=== PATIENT | female | born 1945 | race Caucasian/White ===

== ENCOUNTER 2018-12-27 19:08 | Emergency (ER) | payer SELFPAY ==
[~2018-12-27] VITALS: Ht 152.4 cm; Wt 54.3 kg
[2018-12-27 19:55] VITALS: Ht 152.4 cm; Wt 54.3 kg
[2018-12-28] MEDS ORDERED: ENAL20TA PO (01:19)
[2018-12-28] MEDS ORDERED: ASPI-535 PO (01:19)
[2018-12-28] MEDS ORDERED: IBUPROFEN 600 MG TAB PO ONE (01:30)
--- NOTE | 2018-12-28 01:50 | ERD ---
ER Documentation Chief Complaint Chief Complaint PALPITATIONS X 10 DAYS AND r ARM PAIN HPI Is a 69-year-old female palpitations 10 days. She also complains of right arm pain for the past 6 months. Denies any nausea vomiting fever chills. Denies chest pain shortness of breath. Symptoms have since resolved. Denies any other current issues ROS All systems reviewed and are negative except as per history of present illness. Medications Home Meds Reported Medications Aspirin Ec (Aspir 81) 81 Mg Tablet.dr, 81 MG PO DAILY, #30 TAB 12/28/18 Enalapril Maleate* (Enalapril Maleate*) 20 Mg Tablet, 20 MG PO DAILY, TAB 12/28/18 Allergies Allergies: Coded Allergies: No Known Allergy (Unverified , 12/27/18) PMhx/Soc History of Surgery: Yes (C SECTION, REUBEN ) Anesthesia Reaction: No Hx Neurological Disorder: No Hx Respiratory Disorders: No Hx Cardiac Disorders: Yes (HTN ) Hx Psychiatric Problems: No Hx Miscellaneous Medical Probl: Yes (HIGH CHOLESTEROL ) Hx Alcohol Use: No Hx Substance Use: No Hx Tobacco Use: No Smoking Status: Never smoker Physical Exam Vitals Vital Signs Date Temp Pulse Resp B/P (MAP) Pulse Ox O2 O2 Flow FiO2 Time Delivery Rate 12/28/18 87 18 135/74 97 Room Air 01:18 (94) 12/28/18 92 24 147/67 99 Room Air 00:00 (93) 12/27/18 98.0 96 20 155/82 100 Room Air 22:40 (106) 12/27/18 97.8 83 16 150/70 97 19:55 (96) Physical Exam Const: No acute distress Head: Atraumatic Eyes: Normal Conjunctiva ENT: Normal External Ears, Nose and Mouth. Neck: Full range of motion. No meningismus. Resp: Clear to auscultation bilaterally Cardio: Regular rate and rhythm, no murmurs Abd: Soft, non tender, non distended. Normal bowel sounds Skin: No petechiae or rashes Back: No midline or flank tenderness Ext: No cyanosis, or edema Neur: Awake and alert Psych: Normal Mood and Affect Result Diagram: 12/27/18224412/27/185 Results 24 hrs Laboratory Tests Test 12/27/18 22:45 White Blood Count 8.6 10^3/ul Red Blood Count 5.34 10^6/ul Hemoglobin 14.2 g/dl Hematocrit 46.0 % Mean Corpuscular Volume 86.1 fl Mean Corpuscular Hemoglobin 26.6 pg Mean Corpuscular Hemoglobin Concent 30.9 g/dl Red Cell Distribution Width 12.7 % Platelet Count 282 10^3/UL Mean Platelet Volume 10.1 fl Immature Granulocytes % 0.200 % Neutrophils % 44.5 % Lymphocytes % 47.0 % Monocytes % 4.5 % Eosinophils % 3.0 % Basophils % 0.8 % Nucleated Red Blood Cells % 0.0 /100WBC Immature Granulocytes # 0.020 10^3/ul Neutrophils # 3.8 10^3/ul Lymphocytes # 4.0 10^3/ul Monocytes # 0.4 10^3/ul Eosinophils # 0.3 10^3/ul Basophils # 0.1 10^3/ul Nucleated Red Blood Cells # 0.0 10^3/ul Prothrombin Time 11.7 Sec Prothrombin Time Ratio 0.9 INR International Normalized Ratio 0.85 Activated Partial Thromboplast Time 25.1 Sec Sodium Level 143 mmol/L Potassium Level 4.1 mmol/L Chloride Level 104 mmol/L Carbon Dioxide Level 27 mmol/L Anion Gap 12 Blood Urea Nitrogen 18 mg/dl Creatinine 0.80 mg/dl Est Glomerular Filtrat Rate mL/min mL/min Glucose Level 99 mg/dl Calcium Level 10.1 mg/dl Total Bilirubin 0.7 mg/dl Direct Bilirubin 0.00 mg/dl Indirect Bilirubin 0.7 mg/dl Aspartate Amino Transf (AST/SGOT) 82 IU/L Alanine Aminotransferase (ALT/SGPT) 142 IU/L Alkaline Phosphatase 102 IU/L Troponin I < 0.012 ng/ml B-Type Natriuretic Peptide 12 PG/ML Total Protein 7.8 g/dl Albumin 4.4 g/dl Globulin 3.40 g/dl Albumin/Globulin Ratio 1.29 Thyroid Stimulating Hormone (TSH) 0.802 MIU/L Free Thyroxine Index 0.91 ug/ml Thyroxine (T4) 2.7 ug/dl Triiodothyronine (T3) Uptake 33.7 % Current Medications Medications Dose Sig/Yoni Start Time Status Last (Trade) Ordered Route PRN Stop Time Admin Dose Reason Admin Ibuprofen 600 mg ONCE ONCE 12/28/18 DC 12/28/18 (Motrin) PO 01:30 01:25 12/28/18 01:31 Procedures/MDM EKG: Rate/Rhythm: [Normal Sinus Rhythm] QRS, ST, T-waves: [No changes consistent w/ acute ischemia] Impression: [No evidence of ischemia or arrhythmia] Chest X-ray 1V Interpreted by me: Soft Tissue: No acute abnormalities Bones: No acute abnormalities Mediastinum/Cardiac Silhouette/Lungs: [No acute abnormalities] Patient's thoracic symptoms have stabilized while in the department and are stable for outpatient follow up. Exam and work up not consistent w/ ischemia, arrhythmia, PE or dissection. Departure Diagnosis: Primary Impression: Palpitations Condition: Stable Patient Instructions: Palpitations GLEN PATEL Dec 28, 2018 01:50
[2018-12-28 01:55] VITALS: BP 127/77; PULSE 86; RESP 21
== END 2018-12-28 01:55 | disposition home or self-care (01) ==
LOC: E/R 19:08
DX: R00.2 Palpitations (principal); I10 Essential (primary) hypertension; R40.2142 Coma scale, eyes open, spontaneous, at arrival to emergency department; R40.2252 Coma scale, best verbal response, oriented, at arrival to emergency department; R40.2362 Coma scale, best motor response, obeys commands, at arrival to emergency department; R07.9 Chest pain, unspecified; Z79.82 Long term (current) use of aspirin
CPT/HCPCS: 36415; 71045; 80053; 83880; 84436; 84443; 84479; 84484; 85025; 85610; 85730; 93005